=== PATIENT | male | born 1945 | race Caucasian/White ===

== ENCOUNTER 2021-02-27 00:55 | Emergency (ER) | payer MEDICARE, SELFPAY ==
[2021-02-27 00:57] VITALS: BP 192/91; PULSE 63; RESP 18; TEMP 36.3; O2SAT 98; BMI 24.2
--- NOTE | 2021-02-27 01:51 | EKG12_ITS ---
Test Reason : NAUSEA/VOMITING Blood Pressure : / mmHG Vent. Rate : 052 BPM Atrial Rate : 052 BPM P-R Int : 188 ms QRS Dur : 094 ms QT Int : 430 ms P-R-T Axes : 055 025 018 degrees QTc Int : 399 ms Sinus bradycardia Voltage criteria for left ventricular hypertrophy Abnormal ECG Confirmed by SACHI RAMOS, CAPRICE ([id number]), fashion editor CRISTIAN RICHARDSON ([id number]) on 02/28/2021 11:26:32 AM Referred By: MARTA Confirmed By:CAPRICE KARIMI MD
[2021-02-27 01:55] LABS: Absolute Lymphocyte Count 2.72 X10^3/uL (0.83-4.51); Basophil# 0.06 X10^3/uL; Basophil% 0.7 % (0-1); Eosinophil# 0.39 X10^3/uL; Eosinophils% 4.9 % (0-5); Hematocrit 41.8 % (40-54); Hemoglobin 13.8 g/dL (13.0-16.5); Lymphocyte # 2.72 X10^3/ul (4.0); Lymphocyte % 33.8 % (19-41); Mean Corpuscular Hgb 31.4 pg (27.0-32.0); Mean Platelet Vol. 10.1 fl (6.2-12.0); Monocyte# 0.89 X10^3/uL; Monocyte% 11.1 % (0-10); NRBC Flagged by Analyzer 0 % (0-5); Neutrophil # 3.96 X10^3/uL (2.7-7.7); Neutrophil % 49.3 % (47-70); Platelet Count 175 K/mm3 (150-450); RBC Distribution Width CV 12.4 % (11.6-14.6); RBC Distribution Width SD 43.4 fl (35.1-43.9)
[2021-02-27 02:09] LABS: ALB/GLOB Ratio 1.1 RATIO (0.9-2.4); AST(SGOT) 26 U/L (15-37); Alanine Aminotransfer ALT/SGPT 37 U/L (16-61); Albumin, Serum 3.8 g/dL (3.2-5.0); Alkaline Phosphatase 71 U/L (45-117); Anion Gap 4 (5-15); BUN 24 mg/dL (7-18); BUN/Creat Ratio 26.7 RATIO (10-20); Calcium,Total 8.9 mg/dL (8.5-10.1); Chloride 104 mmol/L (98-107); EST Glomerular Filtration Rate 88 mL/min (>60); Est Glom Filt Rate - Afr Amer 106 mL/min (>60); Estimated Creatinine Clearance 79.04 ml/min; Globulin 3.6 g/dL (2.2-4.2); Glucose 98 mg/dL (74-106); Lipase 674 U/L (73-393); Protein, Total 7.4 g/dL (6.4-8.2); Sodium Level 138 mmol/L (136-145)
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
== END 2021-02-27 02:57 | disposition home or self-care (01) ==
PROVIDERS: Emergency Provider Emergency Medicine; PCP Family Medicine
DX: R11.2 Nausea with vomiting, unspecified (principal); R74.8 Abnormal levels of other serum enzymes; R51.9 Headache, unspecified; R42 Dizziness and giddiness
CPT/HCPCS: 80053; 83690; 84484; 85025; 93005; 99283; A4216

== ENCOUNTER 2025-06-22 06:56 | Emergency (ER) | payer MEDICARE, SELFPAY ==
[2025-06-22 06:57] VITALS: BP 165/104; PULSE 52; RESP 18; TEMP 36.3; O2SAT 96; BMI 27.0
--- NOTE | 2025-06-22 07:13 | EDS_ITS ---
HPI History of Present Illness Chief Complaint: Allergic Reaction Detail of Chief Complaint: Tongue swelling Informant: patient Narrative Narrative: Patient presents to the emergency department with complaint tongue swelling that he noticed this morning when he woke up. Patient states that he woke up at 2 AM to use the restroom and he was his normal self. Denies any new medications. He does not take blood pressure medication. Tells me he has history of Lyme and currently is taking a naturopathic elixir that he has been taken for well over a month. He denies shortness of breath. He denies difficulty swallowing. Patient tells me that he clenches his teeth at night he is not sure if he may have bitten his tongue in his sleep. Patient states only the left side of his tongue is swollen. Patient feels like symptoms are starting to improve [facility] Medical History (Updated 06/22/25 @ 11:[address] Martin Powers, DO) Lyme disease Home Medications ?Medication ?Instructions ?Recorded ?Last Taken ?Type epinephrine 0.3 mg/0.3 mL 0.3 mg (0.3 mL) IM Q10M PRN PRN 06/22/25 Unknown Rx injection, auto-injector (EpiPen) anaphylaxis #1 ea Allergy/AdvReac Type Severity Reaction Status Date / Time No Known Allergies Allergy Verified 06/22/25 06:56 Family History no significant family his Social History Smoking Status: Never smoker ROS ROS ED Review of Systems ROS Unobtainable: other Constitutional Constitutional ED: Reports lethargy; Denies chills, fever(s), sweats or weight loss Eyes Eyes: Denies blurry vision, change in vision or diplopia ENT ENT ED: Reports other Details: Tongue swelling ; Denies rhinorrhea or sore throat Cardiovascular Cardiovascular: Denies chest pain, orthopnea or racing heartbeat Respiratory/Chest Respiratory/Chest: Denies cough, dyspnea, dyspnea on exertion, orthopnea or sputum Gastrointestinal Gastrointestinal: Denies abdominal pain, diarrhea, nausea or vomiting Genitourinary Genitourinary ED: Denies dysuria, hematuria or urinary frequency Musculoskeletal Musculoskeletal: Denies arthralgias, back pain, myalgias or neck pain Integumentary Denies abscess, Abrasions or rash Neurologic Neurologic: Denies headache(s) or weakness Psychiatric Psychiatric: Denies anxiety, depression or suicidal thoughts Endocrine Endocrinology: Denies polydipsia, polyphagia or polyuria Hematologic/Lymphatic Hematologic/Lymphatic: Denies easy bleeding, easy bruising or lymphadenopathy Allergic/Immunologic Allergic/Immunologic ED: Denies mouth swelling, tongue swelling or urticaria EXAM Physical Exam Const Vital Signs: 06/22/25 06:57 06/22/25 08:01 06/22/25 09:07 Temperature 97.4 F L Temperature Source Oral Pulse Rate 52 L 50 L 48 L Respiratory Rate 18 Blood Pressure 165/104 H 168/86 H 183/75 H Blood Pressure Mean 124 113 111 Pulse Ox 96 97 97 Oxygen Delivery Method Room Air Room Air 06/22/25 11:00 Temperature Temperature Source Pulse Rate 78 Respiratory Rate 14 Blood Pressure 165/80 H Blood Pressure Mean 108 Pulse Ox 98 Oxygen Delivery Method Room Air Positive well nourished and well developed General Appearance ED: well developed and NAD HEENT Reports TM's clear and moist mucous membranes HEENT Narrative: Patient with edema of the left side of the distal tongue. There is edema to the floor of the mouth on the left side. No dental tenderness on palpation. There is no dental abscess noted. No gingival erythema. Oropharynx appears normal without any evidence of angioedema. No stridor on exam. normocephalic and atraumatic; Negative for trauma or tenderness Tympanic Membrane ED: Yes TM's clear Eyes PERRL and EOMs intact bilaterally General Eye ED: Negative for pale conjunctiva or scleral icterus Neck no lymphadenopathy, supple and no JVD General: Negative for tenderness Chest Wall inspection of chest normal and palpation of chest normal Chest: Negative for tenderness Resp normal respiratory effort and clear to auscultation bilaterally Effort and Inspection: Negative for respiratory distress or pain with movement Auscultation: Negative for rhonchi, wheezes or diminished lung sounds Cardio regular rate, regular rhythm, S1 normal heart sound, S2 normal heart sound and no murmurs Peripheral Pulses: pulses 2+ throughout GI normal to inspection, nondistended, normoactive bowel sounds, soft to palpation, non-tender, non-distended and no masses Back/Spine no CVA tenderness and no thoracic nor lumbar tenderness Extremity normal to inspection General Extremety ED: Negative for edema General Extremity: Negative for edema Neuro oriented x3, CN's II-XII intact bilaterally, no sensory deficits noted and gait normal Sensorium / Orientation: awake, alert, oriented to person, oriented to place and oriented to time Motor Exam: strength 5/5 throughout and strength abnormal Psych mental status grossly normal Skin no rashes or lesions noted and no wounds MDM MDM MDM Narrative Medical decision making narrative: Patient presents with localized edema of the left side of the tongue. Di fferential would be edema related to trauma versus allergy. He is in no respiratory distress. I ordered Solu-Medrol, Benadryl, and Pepcid for the patient. Patient refusing the Solu-Medrol because he says he has Lyme and does not want his immune system suppressed. I explained to him that I felt it was important to manage the swelling so that it does not progress and potentially cause life-threatening edema. Patient understands my concerns and is refusing the Solu-Medrol as well as the Pepcid. He did agree to take the Benadryl. Will observe patient closely in the department. Patient eventually agreed to take the Pepcid. Still refusing prednisone or steroids. He was observed in department for 4 hours. The swelling to the left side of the tongue improved significantly and the swelling/edema to the floor of the mouth on the left side is now resolved. He feels well and would like to go home. Again refusing steroids. I will recommend that he take Benadryl every 8 hours for the next 2 days and will discharge with an EpiPen. Etiology of his localized angioedema unclear if this is related to trauma and biting of the tongue which is what he thinks happened versus some sort of a allergic reaction. He is not on an GABE inhibitor. No other new medications. He is advised that if the swelling should worsen or moved to the other side of the tongue or if he should have difficulty swallowing or breathing to use the EpiPen and call 911 and promptly return to the emergency department. Discharge Plan Triage Chief Complaint: Allergic Reaction ED Provider: Martin Powers Dx/Rx/DC Orders Clinical Impression: Angioedema of tongue Instructions: ED Angioedema Prescriptions: New epinephrine [EpiPen] 0.3 mg/0.3 mL auto-injector 0.3 mg IM Q10M PRN PRN (Reason: anaphylaxis) Qty: 1 0RF Rx Instructions: for 2 doses Primary Care Provider: Gilson Oconnor Referrals: Gilson Oconnor MD [Primary Care Provider] - 3-5 Days Print Language: Turkmen Disposition Disposition: Home, Self Care
[2025-06-22] MEDS: DiphenhydrAMINE 50 MG/ML Syringe 25 MG IV ×2 (07:16→07:59)
--- NOTE | 2025-06-22 07:23 | ED.RN ---
Pt. refused solumedrol. States I'll before I get a steroid, absolutely not I will not take that.
--- NOTE | 2025-06-22 07:24 | ED.RN ---
Pt. refused again the IV solumedrol and pepcid. Dr. Powers notified and at bedside to discuss with pt. He continues to refuse.
[2025-06-22] MEDS: Famotidine 200 MG/20 ML MDV 20 MG in 0.9% Normal Saline (Pres. free 8 ML 300 MG IV (07:59)
[2025-06-22 08:01] VITALS: BP 168/86; PULSE 50; O2SAT 97
[2025-06-22 09:07] VITALS: BP 183/75; PULSE 48; O2SAT 97
[2025-06-22 11:00] VITALS: BP 165/80; PULSE 78; RESP 14; O2SAT 98
[2025-06-22 11:44] VITALS: BP 132/80; PULSE 50; RESP 18; TEMP 36.7; O2SAT 98
== END 2025-06-22 11:45 | disposition home or self-care (01) ==
PROVIDERS: Emergency Provider Emergency Medicine; PCP Family Medicine; Visit Provider Emergency Medicine
DX: T78.40XA Allergy, unspecified, initial encounter (principal); R60.0 Localized edema; X58.XXXA Exposure to other specified factors, initial encounter
CPT/HCPCS: 96374; 96375; 96376; 99283; A4216